=== PATIENT | female | born 1995 | race Hispanic/Latino ===

== ENCOUNTER 2016-06-24 00:30 | Inpatient (IN) | payer OTHER ==
[~2016-06-24] VITALS: Ht 157.5 cm; Wt 94.8 kg
[2016-06-24] VITALS (16 sets, daily range): BP systolic 97–147; BP diastolic 49–106
--- NOTE | 2016-06-24 00:40 | NUR ---
WITH MEREDITH OF 07/07. PT ARRIVED ON UNIT WITH C/O CTX THAT STARTED AT 22:30 ON 06/23. PT STATES THAT SHE HAD A SMALL AMOUNT OF VAGINAL BLEEDING AND LEAKING OF FLUIDS AT 2300. PT DENIES ANY COMPLICATIONS WITH THIS . ACTIVE MOVEMENT NOTED. STERILE SPECULUM EXAM DONE. SMALL AMOUNT OF MUCOUS AND CLEAR FLUIDS NOTED. ROM+ AND FERN COLLECTED. SVE 2-3/80%/-2 VERTEX. PT TOLERATED WELL. ENCOURAGED PT TO RELAX AND BREATHE THRU CTX. FAMILY AT BEDSIDE. CALL LIGHT IN REACH. POC REVIEWED.
[2016-06-24 00:43] LABS: URINE BILIRUBIN - DIPSTICK NEGATIVE (NEGATIVE); URINE BLOOD DIPSTICK SMALL (NEGATIVE); URINE CLARITY SLIGHT CLOUDY; URINE COLOR YELLOW; URINE GLUCOSE - DIPSTICK NEGATIVE (NEGATIVE); URINE KETONE NEGATIVE (NEGATIVE); URINE LEUK ESTERASE TRACE (NEGATIVE); URINE NITRITE - DIPSTICK NEGATIVE (Negative); URINE PH 6.5 (4.5-8.0); URINE PROTEIN - DIPSTICK NEGATIVE (NEG-TRACE); URINE SPECIFIC GRAVITY 1.015; URINE UROBILINOGEN - DIPSTICK 0.2 E.U./dL (0.2)
[2016-06-24 00:47] LABS: BARBITURATES NEGATIVE (NEGATIVE); COCAINE NEGATIVE (NEGATIVE); METHADONE NEGATIVE (NEGATIVE); OXCYCODONE NEGATIVE (NEGATIVE); TETRAHYDROCANNABIONOL NEGATIVE (NEGATIVE); TRICYLIC ANTIDEPRESSANTS NEGATIVE (NEGATIVE); URINE BACTERIA FEW hpf; URINE SQUAMOUS EPITHELIAL CELL MODERATE EPI/hpf (0-FEW)
[2016-06-24] MEDS ORDERED: PRENATA3 PO (00:57)
--- NOTE | 2016-06-24 01:00 | NUR ---
DR MELARA CALLED AND NOTIFIED OF PT ARRIVAL, UA, POSITIVE FERN, POSITIVE ROM+, CTX AND PT HISTORY. NEW ORDERS RECEIVED TO ADMIT PT, INITIATE ANTEPARTUM ORDER SET AND GBS PROTOCOL. POC REVIEWED WITH PT AND PT AGREEABLE TO POC.
[2016-06-24 01:47] LABS: HEMATOCRIT 37.3 % (37.0-47.0); HEMOGLOBIN 12.5 g/dl (12.0-16.0); IMMATURE GRANULOCYTES 0.3 % (0.0-1.0); MEAN CELL VOLUME 83.6 fL CALC (80.0-100.0); MEAN CORPUSCULAR HGB CONC 33.5 g/L CALC (32.0-36.0); NEUT# 9.62 thou/uL (2.00-7.15); RED BLOOD COUNT 4.46 mill/uL (4.20-5.60); RED CELL DISTRI WIDTH 13.6 % (11.5-15.5)
[2016-06-24 01:58] LABS: ALBUMIN 3.2 g/dL (3.2-5.0); ALKALINE PHOSPHATASE 224 u/l (38-126); ANION GAP 13 (6-22 (CALC)); BILIRUBIN, TOTAL 0.3 mg/dL (0.0-1.4); BUN 7 mg/dL (7-17); BUN/CREATININE RATIO 16 (12-20 (CALC)); CALCIUM 9.3 mg/dL (8.4-10.2); CARBON DIOXIDE 22 mmol/l (22-30); CHLORIDE 106 mmol/l (95-108); CREATININE 0.5 mg/dL (0.5-1.0); GFR > 60 ML/MIN (>=60 (CALC)); GFR FOR AFR.AMER. > 60 ML/MIN (>=60 (CALC)); GLUCOSE 103 mg/dL (65-105); POTASSIUM 4.1 mmol/l (3.5-5.1); SGOT/AST 17 u/l (14-36); SGPT/ALT 25 u/l (9-52); SODIUM 136 mmol/l (137-146); TOTAL PROTEIN 6.2 g/dL (6.3-8.2)
--- NOTE | 2016-06-24 02:00 | NUR ---
BEDSIDE REPORT GIVEN TO KYLER FISHMAN USING SBAR FORMAT.
--- NOTE | 2016-06-24 02:07 | NUR ---
LOREE AT THE BEDSIDE TO TRANSLATE.
--- NOTE | 2016-06-24 03:46 | NUR ---
DR MELARA CALLED AND NOTIFIED OF RECENT SVE. PHYSICIAN STATES HE WILL BE IN SHORTLY TO SEE PT. KYLER VELA NOTIFIED.
--- NOTE | 2016-06-24 03:56 | NUR ---
0344: PT AMBULATES TO BR 1. IV INFUSING PER MED PUMP AT 125CC/HR. BREATHES HARD THROUGH CONTRACTIONS. IN BIRTHING ROOM PT INCONTINENT OF URINE ON THE FLOOR. WANTS TO USE TOILET TO HAVE BMYeimi LEONARDO RN EXPLAINS TO PT IT IS BABYS HEAD COMING DONE. PT VOICES UNDERSTANDING. 0356: EXTERNAL MONITORS APPLIED.
--- NOTE | 2016-06-24 04:09 | NUR ---
DR. MELARA HERE AND PERFORMS SVE. PT IS 8CM, 100% EFFACED, "0" STATION. PT BREATHING HARD THROUGH CONTRACTIONS, ALMOST LOSING CONTROL AND WANTING TO PUSH. Beverley CASTLE RN WORKS WITH PT WITH BREATHING THROUGH HER CONTRACTIONS.
--- NOTE | 2016-06-24 05:53 | NUR ---
DELIVERED VIABLE FEMALE VAGINALLY WITH KIWI ASSISTANCE. CERVICAL LACERATION WITH REPAIR BY DR. MELARA. SEE DELIVERY ROOM RECORD FOR DETAILS.
--- NOTE | 2016-06-24 06:45 | NUR ---
PT RESTING IN BED, FUNDUS FIRM AT UMBILICUS WITH LIGHT LOCHIA, PERINEAL EDEMA NOTED, ICE APPLIED. ASSESSMENT DONE, STABLE. DISCUSSED PLAN OF CARE WITH PT AND FAMILY. POST TEACHING DONE, PT AND FAMILY VERBALIZED UNDERSTANDING.
--- NOTE | 2016-06-24 07:15 | NUR ---
PT ASSISTED TO BATHROOM, UNABLE TO VOID, PERICARE DONE, PANTIES AND PADS PLACED, GOWN CHANGED. PT TOLERATED ACTIVITY WELL. PT TRANSFERED TO ROOM 207 VIA WHEELCHAIR. ORIENTED TO NEW ROOM. FAMILY REMAINS AT BEDSIDE.
--- NOTE | 2016-06-24 07:29 | NUR ---
MEDICATED WITH MOTRIN FOR CRAMPING PAIN. DENIES ANY OTHER NEEDS.
--- NOTE | 2016-06-24 08:30 | NUR ---
FUNDAL CHECK DONE, STABLE. ASSISTED TO BATHROOM, VOIDED 250ML, PERICARE DONE. [place]INE SPRAY PROVIDED PT EXPERIENCED BURNING WITH URINATION. INSTRUCTED ON USE, PT VERBALIZED UNDERSTANDING. DENIES ANY OTHER NEEDS. FAMILY REMAINS AT BEDSIDE.
--- NOTE | 2016-06-24 10:19 | NUR ---
IVF DONE INFUSING, SALINE LOCKED. PT RESTING, DENIES ANY PAIN OR NEEDS AT THIS TIME.
--- NOTE | 2016-06-24 11:49 | NUR ---
PT RESTING IN BED WITH FAMILY AT THE BEDSIDE. FRESH ICE WATER AND LUCH TRAY PROVIDED. PT STATES NO NEEDS AT THIS TIME.
--- NOTE | 2016-06-24 12:21 | NUR ---
PT SITTING UP IN BED, EATING LUNCH, RATES PAIN 3 OUT OF 10, OFFERED HEAT PACK, BUT DENIES THE NEED FOR IT. DENIES ANY OTHER NEEDS. FAMILY AT BEDSIDE.
--- NOTE | 2016-06-24 15:00 | NUR ---
PT AWAKE, VISITING WITH FAMILY. DENIES ANY PAIN. INSTRUCTED PT TO START WITH EDUCATION PAPERWORK IN PREPARATION FOR DISCHARGE, PT VERBALIZED UNDERSTANDING AND DENIES ANY NEEDS.
--- NOTE | 2016-06-24 16:00 | NUR ---
PT SITTING UP IN RECLINER CHAIR, VS DONE, STABLE. DENIES ANY PAIN. FRESH WATER GIVEN.
--- NOTE | 2016-06-24 16:35 | NUR ---
REPORT GIVEN TO Mayte FOUNTAIN RN TO ASSUME CARE OF PT.
--- NOTE | 2016-06-24 20:00 | NUR ---
POC REVIEWED WITH PT, UNDERSTANDING VERBALIZED. PT ENCOURAGED TO CALL WITH ANY NEEDS OR CONCERNS. FAMILY VISITING AT
--- NOTE | 2016-06-25 00:30 | NUR ---
PT RESTING, DENIES ANY PAIN AT THIS TIME
[2016-06-25 00:34] VITALS: BP 104/60
--- NOTE | 2016-06-25 06:00 | NUR ---
CBC DRAWN, PT TOLERATED WELL. PT HAS NO NEEDS OR CONCERNS AT THIS TIME.
[2016-06-25 06:10] LABS: HEMATOCRIT 30.5 % (37.0-47.0); IMMATURE GRANULOCYTES 0.2 % (0.0-1.0); MEAN CELL VOLUME 85.9 fL CALC (80.0-100.0); MEAN CORPUSCULAR HGB 28.2 pG CALC (26.0-32.0); MEAN CORPUSCULAR HGB CONC 32.8 g/L CALC (32.0-36.0); NEUT# 7.52 thou/uL (2.00-7.15); RED BLOOD COUNT 3.55 mill/uL (4.20-5.60); RED CELL DISTRI WIDTH 14.1 % (11.5-15.5)
--- NOTE | 2016-06-25 06:17 | NUR ---
REPORT PREPARED FOR ONCOMING SHIFT
--- NOTE | 2016-06-25 07:15 | NUR ---
PATIENT SITING ON CHAIR AT BEDSIDE. ASSESSMENT DONE IN BED. ADMITS TO LOWER ABDOMINAL CRAMPING BUT DECLINES ANALGESIC AT THIS TIME. STATES THAT SHE WOULD LIKE TO BREASTFEED. INSTRUCTED TO CALL FOR ASSISTANCE IN LATCHING THE INFANT AT NEXT FEED. VERBALISE UNDERSTANDING NO OTHER CONCERNS AT THIS TIME. WOULD LIKE TO BE DISCHARGED TODAY. SEEN BY DR MELARA. DISCHARGE ORDERS WRITTEN.
[2016-06-25] MEDS ORDERED: IBUPROFEN600 MG PO (07:42)
--- NOTE | 2016-06-25 09:45 | NUR ---
PRESCRIPTION GIVEN. INSTRUCTED TO FOLLOW UP IN 5 WEEKS OR BEFORE NEEDED. COPY OF ALL DISCHARGE INSTRUCTIONS GIVEN AFTER REVIEW. VERBALISE UNDERSTANDING.
[2016-06-25 11:45] VITALS: BP 109/58
--- NOTE | 2016-06-25 13:10 | NUR ---
Discharge instructions given. Patient verbalizes understanding of same. Discharged in stable condition via Wheelchair to Home with family. All belongings sent with pt. WILL CALL TO MAKE FOLLOW UP APPT. HAS PRESCRIPTION FOR MOTRIN.
== END 2016-06-25 13:10 | disposition home or self-care (01) | DRG 774 ==
LOC: OBOP 00:30 → OB 00:30 → OBOP 00:59 → OB 01:00
PROVIDERS: ADMIT Obstetrics & Gynecology; ATTEND Obstetrics & Gynecology
PROC: 10D07Z6 Extraction of Products of Conception, Vacuum, Via Natural or Artificial Opening (ICD-10-PCS; principal; 2016-06-24)
PROC: 0HQ9XZZ Repair Perineum Skin, External Approach (ICD-10-PCS; 2016-06-24)
DX: O72.1 Other immediate postpartum hemorrhage (principal); O70.0 First degree perineal laceration during delivery; Z3A.38 38 weeks gestation of pregnancy; Z37.0 Single live birth
CPT/HCPCS: J2540

== ENCOUNTER 2018-03-26 08:34 | Emergency (ER) | payer OTHER ==
[~2018-03-26] VITALS: Ht 157.5 cm; Wt 70.0 kg
[~2018-03-26 08:34] MED LIST: IBUPROFEN600 MG PO; PRENATA3 PO
[2018-03-26] MEDS ORDERED: LEVOTHYROXIN50 MC1 PO (09:12)
[2018-03-26 09:13] LABS: HEMATOCRIT 34.9 % (37.0-47.0); HEMOGLOBIN 11.8 g/dl (12.0-16.0); IMMATURE GRANULOCYTES 0.5 % (0.0-5.0); MEAN CELL VOLUME 86.2 fL CALC (80.0-100.0); MEAN CORPUSCULAR HGB 29.1 pG CALC (26.0-32.0); MEAN CORPUSCULAR HGB CONC 33.8 g/L CALC (32.0-36.0); NEUT# 3.99 thou/uL (2.00-7.15); RED BLOOD COUNT 4.05 mill/uL (4.20-5.60); RED CELL DISTRI WIDTH 12.3 % (11.5-15.5)
[2018-03-26 09:25] LABS: ANION GAP 11 (6-22 (CALC)); BUN 4 mg/dL (7-17); BUN/CREATININE RATIO 12 (12-20 (CALC)); CARBON DIOXIDE 21 mmol/l (22-30); CHLORIDE 107 mmol/l (95-108); CREATININE 0.4 mg/dL (0.5-1.0); GFR > 60 ML/MIN (>=60 (CALC)); GFR FOR AFR.AMER. > 60 ML/MIN (>=60 (CALC)); POTASSIUM 3.8 mmol/l (3.5-5.1); SODIUM 136 mmol/l (137-146)
[2018-03-26 09:56] LABS: TSH, 3RD GENERATION 1.53 uIU/mL (0.47 - 4.68)
[2018-03-26 12:04] VITALS: BP 111/55
== END 2018-03-26 12:10 | disposition home or self-care (01) ==
LOC: ED 08:34
PROVIDERS: Family Medicine
DX: O36.8120 Decreased fetal movements, second trimester, not applicable or unspecified (principal); Z3A.24 24 weeks gestation of pregnancy

== ENCOUNTER → 2018-04-16 | Outpatient (REF) | payer OTHER ==
[~2018-04-16] MED LIST changes: +LEVOTHYROXIN50 MC1 PO
[2018-04-16 09:21] LABS: HEMATOCRIT 34.4 % (37.0-47.0); HEMOGLOBIN 11.3 g/dl (12.0-16.0); IMMATURE GRANULOCYTES 0.3 % (0.0-5.0); MEAN CELL VOLUME 87.1 fL CALC (80.0-100.0); MEAN CORPUSCULAR HGB 28.6 pG CALC (26.0-32.0); MEAN CORPUSCULAR HGB CONC 32.8 g/L CALC (32.0-36.0); NEUT# 5.24 thou/uL (2.00-7.15); RED BLOOD COUNT 3.95 mill/uL (4.20-5.60); RED CELL DISTRI WIDTH 12.8 % (11.5-15.5)
[2018-04-16 10:23] LABS: TSH, 3RD GENERATION 1.91 uIU/mL (0.47 - 4.68)
== END | disposition home or self-care (01) ==
LOC: LAB 07:32
PROVIDERS: ATTEND Obstetrics & Gynecology
DX: Z34.82 Encounter for supervision of other normal pregnancy, second trimester (principal); Z3A.25 25 weeks gestation of pregnancy; E03.9 Hypothyroidism, unspecified

== ENCOUNTER 2018-06-29 04:37 | Emergency (ER) | payer OTHER ==
[~2018-06-29] VITALS: Ht 157.5 cm; Wt 100.0 kg
[2018-06-29 04:54] VITALS: BP 118/62
[2018-06-29 05:24] LABS: URINE BILIRUBIN - DIPSTICK NEGATIVE (NEGATIVE); URINE BLOOD DIPSTICK TRACE-INTACT (NEGATIVE); URINE COLOR YELLOW; URINE GLUCOSE - DIPSTICK NEGATIVE (NEGATIVE); URINE KETONE NEGATIVE (NEGATIVE); URINE NITRITE - DIPSTICK NEGATIVE (Negative); URINE PH 6.5 (4.5-8.0); URINE PROTEIN - DIPSTICK NEGATIVE (NEG-TRACE); URINE UROBILINOGEN - DIPSTICK 0.2 E.U./dL (0.2)
[2018-06-29 05:32] LABS: URINE LEUK ESTERASE MODERATE (NEGATIVE)
[2018-06-29 05:45] LABS: URINE BACTERIA FEW hpf; URINE SQUAMOUS EPITHELIAL CELL FEW EPI/hpf (0-FEW)
[2018-06-29] MEDS ORDERED: CEPHALEXIN500 M1 PO (05:46)
== END 2018-06-29 05:57 | disposition home or self-care (01) ==
LOC: ED 04:37
PROVIDERS: Emergency Medicine
DX: O23.43 Unspecified infection of urinary tract in pregnancy, third trimester (principal); Z3A.38 38 weeks gestation of pregnancy; O36.8130 Decreased fetal movements, third trimester, not applicable or unspecified

== ENCOUNTER 2021-05-10 17:10 | Emergency (ER) | payer OTHER ==
[2021-05-10] VITALS (10 sets, daily range): BP systolic 95–122; BP diastolic 42–68
[~2021-05-10] VITALS: Ht 157.5 cm; Wt 95.0 kg
[~2021-05-10 17:10] MED LIST changes: +CEPHALEXIN500 M1 PO
[2021-05-10 18:14] LABS: HEMATOCRIT 38.8 % (37.0-47.0); HEMOGLOBIN 13.1 g/dl (12.0-16.0); IMMATURE GRANULOCYTES 0.1 % (0.0-5.0); MEAN CELL VOLUME 88.2 fL CALC (80.0-100.0); MEAN CORPUSCULAR HGB 29.8 pG CALC (26.0-32.0); MEAN CORPUSCULAR HGB CONC 33.8 g/dL CAL (32.0-36.0); NEUT# 6.51 thou/uL (2.00-7.15); RED BLOOD COUNT 4.4 mill/uL (4.20-5.60); RED CELL DISTRI WIDTH 11.8 % (11.5-15.5)
[2021-05-10 18:23] LABS: URINE BILIRUBIN - DIPSTICK NEGATIVE (NEGATIVE); URINE BLOOD DIPSTICK LARGE (NEGATIVE); URINE COLOR YELLOW; URINE GLUCOSE - DIPSTICK NEGATIVE (NEGATIVE); URINE KETONE NEGATIVE (NEGATIVE); URINE LEUK ESTERASE NEGATIVE (NEGATIVE); URINE PROTEIN - DIPSTICK NEGATIVE (NEG-TRACE); URINE SPECIFIC GRAVITY >=1.030; URINE UROBILINOGEN - DIPSTICK 0.2 E.U./dL (0.2)
[2021-05-10 18:26] LABS: ALBUMIN 4.2 g/dL (3.2-5.0); ANION GAP 13 (6-22 (CALC)); BUN 11 mg/dL (7-17); BUN/CREATININE RATIO 21 (12-20 (CALC)); CARBON DIOXIDE 22 mmol/l (22-30); CHLORIDE 106 mmol/l (95-108); CREATININE 0.5 mg/dL (0.5-1.0); GFR > 60 ML/MIN (>=60 (CALC)); GFR FOR AFR.AMER. > 60 ML/MIN (>=60 (CALC)); SGOT/AST 25 u/l (14-36); SODIUM 137 mmol/l (137-146)
[2021-05-10 18:29] LABS: URINE NITRITE - DIPSTICK NEGATIVE (Negative)
[2021-05-10 18:30] LABS: ALKALINE PHOSPHATASE 79 u/l (38-126); BILIRUBIN, TOTAL 0.5 mg/dL (0.0-1.4); TOTAL PROTEIN 7.5 g/dL (6.3-8.2); URINE SQUAMOUS EPITHELIAL CELL FEW EPI/hpf (0-FEW)
[2021-05-10 18:41] LABS: BETA-HCG, QUANT(RESULT NUMBER) 1822 mIU/mL
== END 2021-05-10 20:00 | disposition home or self-care (01) ==
LOC: ED 17:10
DX: O20.0 Threatened abortion (principal); Z3A.01 Less than 8 weeks gestation of pregnancy

== ENCOUNTER 2022-01-18 15:58 | Emergency (ER) | payer OTHER ==
[~2022-01-18] VITALS: Ht 157.5 cm; Wt 100.0 kg
[2022-01-18 16:09] VITALS: BP 115/68
[2022-01-18] MEDS ORDERED: ZOFRAN4 MG/TAB PO (16:41)
[2022-01-18] MEDS ORDERED: TAM75CAP PO (16:41)
[2022-01-18 16:55] VITALS: BP 115/68
== END 2022-01-18 17:03 | disposition home or self-care (01) ==
LOC: ED 15:58
DX: J11.1 Influenza due to unidentified influenza virus with other respiratory manifestations (principal); Z20.822 Contact with and (suspected) exposure to COVID-19